=== PATIENT | female | born 1950 | race Two or more races ===

== ENCOUNTER 2023-11-26 06:54 | Day surgery (SDC) | payer OTHER ==
[2023-11-26] VITALS (11 sets, daily range): BP systolic 92–106; BP diastolic 53–74; PULSE 69–99; RESP 15–19; TEMP 98.2; O2SAT 92–99
[~2023-11-26] VITALS: Ht 165.1 cm; Wt 119.7 kg
[~2023-11-26 06:54] MED LIST: ALLO300T2 PO; ASPI-543 PO; CETI10CA PO; CIPR-173 PO; FLUT500M2 INH; FURO1TAB33 PO; HYDR-4798 PO; METO25TA5 PO; SEMA0.5I SC
[2023-11-26] MEDS ORDERED: MIDAZOLAM HCL 2MG/2ML 2ml VIAL (1mg/ml) IV STA (07:48)
[2023-11-26] MEDS ORDERED: fentaNYL CITRATE 100 MCG/2 ML VL IV STA (07:48)
[2023-11-26] MEDS ORDERED: LIDOCAINE VISCOUS 2% 15ML UD MT STA (07:48)
[2023-11-26] MEDS ORDERED: diphenhdrAMINE HCL 50 MG/1 ML VL IV STA (07:48)
== END 2023-11-26 10:59 | disposition home or self-care (01) ==
LOC: CATH 06:54
PROVIDERS: ATTEND Internal Medicine
DX: I47.19 Other supraventricular tachycardia (principal); I48.91 Unspecified atrial fibrillation; I07.1 Rheumatic tricuspid insufficiency; Z79.82 Long term (current) use of aspirin; Z87.891 Personal history of nicotine dependence
CPT/HCPCS: 92960; 93312; 93325; J1200; J2250; J3010; 99152

== ENCOUNTER 2024-10-20 09:51 | Day surgery (SDC) | payer OTHER ==
[~2024-10-20] VITALS: Ht 165.1 cm; Wt 113.4 kg
[2024-10-20] VITALS (7 sets, daily range): BP systolic 99–146; BP diastolic 49–74; PULSE 67–73; RESP 12; O2SAT 92–97
[~2024-10-20 09:51] MED LIST changes: +AMIO200T13 PO; -CIPR-173 PO; +FLUT1AER3 IN; -FLUT500M2 INH; +POTA-220 PO; -SEMA0.5I SC; +TIZA4CAP PO
[2024-10-20] MEDS ORDERED: IODIXANOL 320MG/ML 100ML BTL IV ONE (13:13)
[2024-10-20] MEDS ORDERED: HEPARIN IN NS 1000Units/500mL 1,500 ML ONE (13:14)
[2024-10-20] MEDS ORDERED: ANGIOMAX 250 MG VIAL IV ONE (13:55)
[2024-10-20] MEDS ORDERED: LIDOCAINE 2%HCL (LOCAL ANESTH.) INJ 20ML MDV ONE (13:56)
[2024-10-20] MEDS ORDERED: MIDAZOLAM HCL 2MG/2ML 2ml VIAL (1mg/ml) ONE (13:56)
[2024-10-20] MEDS ORDERED: SODIUM CHL 0.9% 0 ML ONE (13:56)
[2024-10-20] MEDS ORDERED: fentaNYL CITRATE 100 MCG/2 ML VL ONE (13:56)
[2024-10-20] MEDS ORDERED: VERAPAMIL 2.5MG/ML INJ 2ML VIAL IV ONE (14:33)
[2024-10-20] MEDS ORDERED: HEPARIN SODIUM (PORCINE) 5000 UNITS/ML 1ML VIAL ONE (14:41)
--- NOTE | 2024-10-20 16:35 | DVHOP ---
DATE OF SURGERY: 10/20/2024 PREOPERATIVE DIAGNOSES: Severe PAD, ischemic rest pain. POSTOPERATIVE DIAGNOSES: Severe PAD, ischemic rest pain. PROCEDURES PERFORMED: Ultrasound-guided vascular access. Conscious sedation administration and supervision less than 15 minutes, as well as 15-30 minutes fluoroscopy use and interpretation. Catheterization, unilateral lower extremity angiogram. First, second, and third order catheter placement. [employer] ARCHITECT of the fem-pop vessels, intravascular lithotripsy of the fem-pop vessels. DESCRIPTION OF PROCEDURE: The patient signed informed consent, understanding the risks, benefits, and alternatives of the procedure, she wished to proceed. She was [place] She was prepped in sterile fashion. Sedation was used per cardiac cath protocol. I administered 1 mL of 2% lidocaine to her left ankle. With ultrasound-guided access, I cannulated her left anterior tibial artery showing patency and I placed a 6-Polish Glidesheath Slender. Next, an intra-arterial spasmolytic was administered. Next, a lower extremity angiogram was performed using a Quick-Cross catheter 135 cm with a glide Advantage wire 0.035. Angiogram shows the left anterior tibial artery is patent. Left peroneal artery is patent. Left posterior tibial artery is patent. Left trifurcation is patent. Left tibioperoneal trunk is patent. Left common femoral artery is patent. Left proximal, mid, and distal SFA is patent. Left popliteal artery has a 70% eccentric heavily calcified stenosis. Over an 0.014 wire BMW, I took a shockwave intravascular lithotripsy device, 5.0 x 40 mm and performed balloon angioplasty with lithotripsy at two atmospheres with 2 pulses, each of 30 pulses each. Then, I removed the balloon. Angiogram was performed showing less than 20% residual stenosis and excellent flow throughout the tibial vessels bilaterally. The patient tolerated the procedure. The patient had been given 6000 units of IV heparin for the intervention as well. There were no immediate complications. CONCLUSION: Successful balloon angioplasty, intravascular lithotripsy of a 70% eccentric heavily calcified left popliteal artery stenosis. PLAN: Continue antiplatelet therapy for the patient, aspirin daily. Sushil Pickens MD CM/SUZETTE/ZOHAIB TID: [id number] RECEIPT: [id number]
== END 2024-10-20 17:30 | disposition home or self-care (01) ==
LOC: CATH 09:51
PROVIDERS: ATTEND Internal Medicine
DX: I70.222 Atherosclerosis of native arteries of extremities with rest pain, left leg (principal); Z79.82 Long term (current) use of aspirin; Z79.899 Other long term (current) drug therapy; Z87.891 Personal history of nicotine dependence
CPT/HCPCS: 75710; C1725; C1769; C1887; C1894; C9764; J1644; J2250; J3010; Q9967; 99152; 99153